=== PATIENT | female | born 1945 | race Caucasian/White ===

== ENCOUNTER 2022-06-29 14:57 | Outpatient (CLI) | payer MEDICARE, SELFPAY ==
--- NOTE | 2022-06-29 | ECG_ITS ---
Measurements Intervals [place] Rate: 77 P: 65 [place]: 182 QRS: 32 QRSD: 94 T: 71 QT: 371 QTc: 421 Interpretive Statements SINUS RHYTHM WITH SINUS ARRHYTHMIA ATRIAL PREMATURE COMPLEX BORDERLINE T WAVE ABNORMALITY- HIGH LATERAL LEADS BASELINE WANDER- V4-V6 BORDERLINE ECG NO PREVIOUS ECG AVAILABLE FOR COMPARISON Electronically Signed On 06-29-2022 16:08:27 CDT by Hao Perdomo D.O.
[2022-06-29 15:33] LABS: Hematocrit 39.3 % (37.0-47.0); Hemoglobin 12.6 g/dL (12.0-15.0)
[2022-06-29 15:46] LABS: Albumin Level 4.5 g/dL (3.5-5.1); Estimated Glomerular Filt Rate > 60; Glucose 106 mg/dL (65-110)
== END 2022-06-29 14:58 | disposition home or self-care (01) ==
PROVIDERS: PCP Family Medicine; Visit Provider Orthopaedic Surgery
DX: E78.5 Hyperlipidemia, unspecified (principal); M17.11 Unilateral primary osteoarthritis, right knee; I10 Essential (primary) hypertension; Z01.818 Encounter for other preprocedural examination; R94.31 Abnormal electrocardiogram [ECG] [EKG]
CPT/HCPCS: 36415; 82040; 82565; 82947; 85014; 85018; 93005

== ENCOUNTER 2022-07-12 10:59 | Outpatient (CLI) | payer MEDICARE, SELFPAY ==
--- NOTE | ~2022-07-12 | CT_ITS ---
EXAMINATION: CT LE RT wo con DATE: 07/12/2022 11:48 INDICATION: Right knee primary osteoarthritis. TECHNIQUE: Computed tomography (CT) of the right lower limb was performed without intravenous contras t. Automated exposure control and iterative reconstruction technique were employed. The dose-length p roduct was 1786.80 mGy-cm. COMPARISON: Right knee radiographs 06/29/2022 FINDINGS: There is severe right hip osteoarthritis. Right knee demonstrates normal bone alignment. Th ere is moderate osteoarthritis of the medial and patellofemoral compartments and severe osteoarthriti s of the lateral compartment. There is a small knee joint effusion. Varicose veins are noted. There i s a small Bucio's cyst. IMPRESSION: 1. Severe right knee osteoarthritis. 2. Small right knee joint effusion. 3. Small Bucio's cyst. 4. Severe right hip osteoarthritis. Reviewed, dictated and finalized at location A.
== END 2022-07-12 11:00 | disposition home or self-care (01) ==
PROVIDERS: PCP Family Medicine; Visit Provider Orthopaedic Surgery
DX: M17.11 Unilateral primary osteoarthritis, right knee (principal); M25.461 Effusion, right knee; M71.21 Synovial cyst of popliteal space [Baker], right knee; M16.11 Unilateral primary osteoarthritis, right hip
CPT/HCPCS: 73700

== ENCOUNTER 2022-09-06 11:13 | Outpatient (CLI) | payer MEDICARE, SELFPAY ==
[2022-09-06 13:34] LABS: Basophils Percent Auto 0.6 % (0.2-1.2); Eosinophils Absolute Auto 0.1 K/mm3 (0-0.3); Eosinophils Percent Auto 1.3 % (0-4.4); Hematocrit 41.4 % (37.0-47.0); Hemoglobin 13.3 g/dL (12.0-15.0); Immature Granulocyte Absolute 0.02 K/mm3 (0.00-0.031); Immature Granulocyte Percent A 0.3 % (0-0.5); Lymphocytes Absolute Auto 1.55 K/mm3 (0.9-3.2); Lymphocytes Percent Auto 21.9 % (18.3-44.2); Mean Corpuscular HGB Conc 32.1 g/dl (32-36); Mean Corpuscular Hemoglobin 31.3 pg (26-34); Mean Corpuscular Volume 97.4 fl (80-100); Mean Platelet Volume 10.5 fl (7.4-10.4); Monocytes Absolute Auto 0.5 K/mm3 (0.1-0.6); Monocytes Percent Auto 7.5 % (2.6-8.5); Neutrophils Absolute Auto 4.8 K/mm3 (1.3-6.7); Neutrophils Percent Auto 68.4 % (45.5-73.1); Platelet Count Result 266 k/mm3 (150-375); Red Blood Count 4.25 M/mm3 (4.2-5.4); Red Cell Distribution Width 12.1 % (11.5-14.5); White Blood Count 7.1 K/mm3 (4.5-10.0)
[2022-09-06 13:40] LABS: Albumin Level 4.5 g/dL (3.5-5.1)
[2022-09-06 13:43] LABS: Anion Gap 11 mmol/L (8-16); Blood Urea Nitrogen 16 mg/dL (7-17); Calcium 10.2 mg/dL (8.4-10.2); Carbon Dioxide 28 mmol/L (22-30); Chloride 99 mmol/L (98-107); Estimated Glomerular Filt Rate > 60; Glucose 96 mg/dL (65-110); Potassium 3.6 mmol/L (3.4-5.0); Sodium 138 mmol/L (137-145)
[2022-09-06 13:54] LABS: Hemoglobin A1C 5.8 % (<5.7)
[2022-09-06 15:06] LABS: Urine Cotinine NEGATIVE
== END 2022-09-06 11:14 | disposition home or self-care (01) ==
LOC: ANHSURGERY 11:19
PROVIDERS: Anesthesiology; PCP Family Medicine; Visit Provider Orthopaedic Surgery
DX: M17.11 Unilateral primary osteoarthritis, right knee (principal); Z01.818 Encounter for other preprocedural examination
CPT/HCPCS: 80048; 80307; 82040; 83036; 85025; 87081

== ENCOUNTER 2022-09-26 00:14 | Day surgery (SDC) | payer MEDICARE, SELFPAY ==
[2022-09-06 11:35] VITALS: PULSE 70; RESP 16; TEMP 36.6; O2SAT 98; BMI 31.1
--- NOTE | 2022-09-06 11:47 | PC.NURSE ---
Report to the Outpatient Waiting Room, entrance under the green pavilion located off [facility], at time __6:00AM on date _09/26/22 . Planned Procedure Time: __7:30AM . Time changes happen often and if your time is changed the preop area will call you the afternoon before. - You and your visitor will be asked to self-screen and do not enter if you have any COVID symptoms. - Only one visitor is requested with a max of two and NO children visitors are allowed at this time. - The patient visitor may be requested to leave or wait in car when not with patient due to distancing restrictions. - A mask is optional within the hospital. Patients may have clear liquids (water, carbonated beverages, clear teas, apple juice) until 3 hours prior to surgery with a maximum of 20 ounces. - No food from midnight until time of surgery Take the following medications with a SIP of water the morning of surgery: ____NONE Medications to discontinue per physician __HOLD ALL VITAMINS/SUPPLEMENTS 3 DAYS PRE-OP- LAST DOSE 09/22/22. HOLD ALL NSAIDS (IBUPROFEN) 7 DAYS PRE-OP- LAST DOSE 09/19/22 Please no make-up, nail djiboutian, hairspray, perfume, deodorant, or body powder the day of surgery. No jewelry (including any body piercings) or valuables the day of surgery, leave them at home. Please take a shower or bath the night before, or the morning of, surgery with an antibacterial soap. Wear comfortable, loose fitting clothing. Children are encouraged to wear pajamas. - Jewelry must be removed prior to entering the operating room. Rings and piercings that are not removed may be cut off. - The hospital will not accept responsibility for valuables. - Please leave all valuables, including medications, at home the day of surgery. If you are going home after surgery, a licensed certified driver examiner must drive you home. - NO public transportation without another adult if you receive anesthesia. - We recommend that an adult stay with you for 24 hours following discharge. - We also recommend that you do not drive, make important decision, drink alcoholic beverages, or take any drugs that were not prescribed by your health care provider for at least 24 hours after your discharge time. Follow any additional instructions given to you from your surgeon. If you or anyone in your household have experienced Covid symptoms in the past week, please notify your surgeon or the nurse liaison at the phone number below for possible testing. Telephone instructions given to __PATIENT and asked if any additional questions and then verbalized understanding. Patient advised to call surgeon office or pre surgery nurse liaison [phone] if any additional questions.
[2022-09-26] VITALS (18 sets, daily range): BP systolic 105–150; BP diastolic 61–94; PULSE 67–93; RESP 12–18; TEMP 36.1–36.8; O2SAT 94–100
--- NOTE | ~2022-09-26 | XR_ITS ---
EXAMINATION: XR knee RT 2V DATE: 09/26/2022 10:10 DESIGNATED BROKER INDICATION: Right total knee arthroplasty TECHNIQUE: 2 views right knee FINDINGS: There is a right total knee arthroplasty in expected position. Subcutaneous gas with fluid and air in the joint are consistent with recent surgery. No evidence of periprosthetic fracture. IMPRESSION: 1. Recent right total knee arthroplasty. Reviewed, dictated and finalized at location A. GNATED BROKER
[2022-09-26] MEDS: LACTATED RINGERS 1,000 ML 30 ML IV CONT ×3 (06:30→11:12)
[2022-09-26] MEDS: ACETAMINOPHEN 500 MG TABLET 1000 MG PO (06:43)
[2022-09-26] MEDS: TRANEXAMIC ACID 1,000MG/ISO100 1,000 MG/100 ML BAG 200 MG IVPB (07:00)
--- NOTE | 2022-09-26 07:09 | WPDHPUPDATE1 ---
History and Physical Update Update Date/Time: 09/26/22 07:09 History and Physical has been reviewed, including an updated exam of the patient. There are NO changes in the patient's condition. Risks, benefits, and alternatives have been discussed and questions answered. Patient agrees to proceed with procedure.
--- NOTE | 2022-09-26 07:14 | WPDANESEPPF ---
Anes - Initial Pre Proc Eval Procedure: Operation Date: 09/26/22 07:30 Proposed Procedures p Right Custom Total Knee Arthroplasty - Conor Carbajal MD Date/Time: 09/26/22 07:14 Surgeon: Conor Carbajal MD Pre Op Diagnosis: O A Rt Knee Patient Data Age: 76 Gender: F Height: 1.83 m Weight: 104.1 kg Last Vital Signs Temp 36.6 C 09/06/22 11:35 Pulse 70 09/06/22 11:35 Resp 16 09/06/22 11:35 Pulse Ox 98 09/06/22 11:35 O2 Del Method Room Air 09/06/22 11:35 Allergies Allergy/AdvReac Type Severity Reaction Status Date / Time No Known Allergies Allergy Unverified 09/06/22 11:30 Home Medications Medication Instructions Recorded Confirmed Type amlodipine 5 mg tablet 5 mg PO DAILY 06/29/22 09/06/22 History cranberry 1,000 mg capsule 1,000 mg PO DAILY 09/06/22 09/06/22 History ibuprofen 200 mg tablet 400 mg PO Q6H PRN Pain 09/06/22 09/06/22 History losartan 100 1 tablet PO QAM 09/06/22 09/06/22 History mg-hydrochlorothiazide 25 mg tablet simvastatin 20 mg tablet 20 mg PO HS 09/06/22 09/06/22 History vitamin A-vitamin C-vit E-min 1 tablet PO DAILY 09/06/22 09/06/22 History tablet Patient hx anesthesia problems: none Family hx anesthesia problems: none Results Review: All pre-operative results and documents have been reviewed as part of the pre-operative evaluation. [facility] Past Medical History Medical History Arthritis Chronic pain syndrome Hyperlipemia Hypertension Surgical History Surgical History Hx of cholecystectomy (~1999) Family History Family History Father Cancer Other Diabetes mellitus Family history of alcoholism Social History Social History Smoking packs per day: 0.2 Smoking cigarettes per day: 4.0 Years smoked: 5 Smoking pack-years: 1.00 Smoking status: Former smoker Tobacco type: cigarettes Smoking end date: 04/21/85 Alcohol intake: current Substance use: never Lack of Transportation: No Lack of Food: Never True Current Housing: I Have Housing Concerned About Future Housing: No Difficulty Paying Gas/Electric Bills: No Difficulty Paying for Meds: No Currently Unemployed: No Education: High School Diploma/GED Difficulty w/ Childcare or Family Care: No Living arrangements: with family Additional living arrangements comments: SPOUSE Spiritual care concerns: No Anes - Eval Final PreProcedure Day of Procedure 09/26/22 07:14 Patient weight: overweight Heart: regular rate and rhythm Lungs: clear to auscultation Airway: Mallampati scale class II Neurological: alert and oriented Last oral intake: >/= 8 hours ASA classification: III Emergent: no Anesthetic plan: proceed Anesthesia type and monitoring: general LMA and standard monitoring Results Review: All pre-operative results and documents have been reviewed as part of the pre-operative evaluation. Informed Consent: The patient's anesthetic plan and its attendant risks and benefits were discussed with the patient/family/POA. Questions were solicited and answers provided to the satisfaction of the patient/family/POA.
[2022-09-26] MEDS: ceFAZolin 2 GM/D5W 50 ML 2 GM/50 ML BAG IVPB ×2 (07:29→16:44)
--- NOTE | 2022-09-26 09:45 | W.PM.PROC2 ---
Procedure Note - Detailed Date of Procedure 09/26/22 Pre-op Diagnosis O A Rt Knee Post-op Diagnosis Same Procedure Performed Total knee arthroplasty, right Surgeon Conor Carbajal MD Anesthesia General and Regional (Subsartorial block.) Findings Good bone quality. No releases required. Description of Procedure Preoperative antibiotics were given. The limb was prepped and draped in the usual sterile fashion with a well-padded tourniquet high on the thigh. The limb was exsanguinated and the tourniquet inflated to 300 mmHg. A longitudinal incision was created just medial to the patella. A trivector approach to the knee was performed. Arthrotomy was taken down through the joint capsule. No significant releases were taken. The femur was exposed and the F1 jig was applied. The coring tool was used to remove the cartilage for the F2 jig to sit flush with the bone. The jig was pinned and the distal cut carefully taken. Caliper measurements confirmed appropriate bony resections according to the preoperative templated plan. The F4 cutting jig for the femur was applied, at the standard rotation. The AP and anterior chamfer cuts were taken. The F5 jig was applied and the posterior chamfer cuts were taken. The tibia was prepared using the T1 jig, after removing cartilage for the jig contact points. Proper alignment was checked with the alignment pat. The tibia was cut using the T1u guide. Gap balancing was performed. Gap measurements were taken and the knee was trialed. Excellent alignment and soft tissue balancing was confirmed. The posterior cruciate ligament was recessed along the proximal tibia. The patella was cut for resurfacing. Three lug holes were drilled. Meniscal remnants were removed. The trial components were assembled. Excellent range of motion and proper soft tissue balancing were confirmed throughout the full range of motion. Patellar tracking was excellent. The knee was copiously irrigated periodically throughout the procedure. The real implants were cemented into position. Excess cement was carefully removed. The wound was closed in layers with interrupted #1 Vicryl suture, 2-0 strata fix suture, 0 strata fix suture, 2-0 strata fix suture. Steri-Strips placed on the skin with the knee flexed. Sterile bulky dressing applied. The patient was brought to the recovery room in stable condition. There were no complications. Implants [employer] Im[employer] PSI total knee arthroplasty. Cemented. PS. 8mm insert. 38 mm oval patella. Estimated Blood Loss 50 Tourniquet Time 79 Drains No Complications No immediate complications Condition Stable Disposition PACU [facility] Billing Surgery - Charge Forward: Surgery Billing
[2022-09-26] MEDS: fentaNYL CITRATE INJ (*CRX) 100 MCG/2 ML VIAL 25 MCG IV PUSH ×8 (09:58→10:29)
--- NOTE | 2022-09-26 10:16 | WPDANESPNB ---
Anes - Peripheral Nerve Block Date/Time: 09/26/22 10:16 I have discussed with the patient/family/POA the placement of a peripheral nerve block for post-operative pain management, including associated risks, benefits, complications, and side effects. Alternative methods of post-operative analgesia were detailed. Questions were solicited and answers provided to the satisfaction of the patient/family/POA. Time-Out: A pre-procedural Time-Out was completed immediately before starting the procedure and confirmed: Patient Identification, Site, Procedure, Patient Position and the Availability of Requisite Equipment. Clinical Indications: Acute post-operative pain management requested by the operative surgeon. Nerve Block Insertion Note Anes-nerve block: adductor canal right Patient position: supine Skin prep: chlorhexidine Needle: 22 gauge, stimulating, insulated echogenic needle. Needle length: 80 mm Technique: ultrasound Technique comment: mid2mg fent 100mcg Injectate: bupivacaine 0.5% with epi 5 mcg/ml (30ml no epi) and dexamethasone (mg) (4) Observations: tolerated well Complications: none Procedure start time:: 714 Procedure end time:: 721
[2022-09-26] MEDS: HYDROmorphone HCL INJ (*CRX) 1 MG/ML SYR 0.5 MG IV PUSH ×2 (10:39→11:20)
--- NOTE | 2022-09-26 11:47 | SUR.PHASEI ---
1145 - pt meets anesthesia criteria. no room available at this time. pt to preop for extended recovery
--- NOTE | 2022-09-26 12:31 | SUR.PHASEI ---
1145 received pt from recovery room,holding pt in pre op area ,awaiting room assignment. pt remains on stretcher. family to side,daughter and spouse.
[2022-09-26] MEDS: ONDANSETRON INJ 4 MG/2 ML VIAL IV PUSH (13:38)
--- NOTE | 2022-09-26 13:40 | SUR.PHASEI ---
1320 standing at side of stretcher with pt and walker,complains nausea and slight dizziness,returned to stretcher.zofran given and eating crackers.
--- NOTE | 2022-09-26 16:28 | ADMGEN ---
This patient, Ivanna Gallegos, was admitted to 2 Medical Room 242-. Patient/family oriented to hospital policies and general routines including ID bracelet, bed and alarms, visiting hours, pain management, procedures, bathroom and other care routines, personal items, smoking policy, room service/diet, and visiting hours. Information on how to activate the Rapid Response Team has been discussed. Patient/Family are encouraged to report perceived risks to care and to ask questions if they do not understand what they are told or what they should do.
[2022-09-26] MEDS: SODIUM CHLORIDE 0.9% IV 1,000 ML 125 ML IV CONT (16:45)
[2022-09-26] MEDS: ASPIRIN 81 MG ENTERIC TABLET PO (16:47)
[2022-09-26] MEDS: MELOXICAM 7.5 MG TABLET PO (16:47)
[2022-09-26] MEDS: SENNA/DOCUSATE SODIUM TABLET 2 TAB PO (16:47)
[2022-09-26] MEDS: oxyCODONE HCL (*CRX) 5 MG TAB IR PO (20:11)
[2022-09-26] MEDS: FAMOTIDINE 20 MG TABLET PO (21:36)
[2022-09-26] MEDS: SIMVASTATIN 20 MG TABLET PO (21:36)
[2022-09-27] MEDS: ceFAZolin 2 GM/D5W 50 ML 2 GM/50 ML BAG IVPB ×2 (00:27→08:05)
[2022-09-27] MEDS: oxyCODONE HCL (*CRX) 5 MG TAB IR PO ×2 (00:35→09:54)
[2022-09-27 04:07] VITALS: BP 136/59; PULSE 74; RESP 20; TEMP 36.2; O2SAT 95
[2022-09-27 06:31] LABS: Basophils Percent Auto 0.2 % (0.2-1.2); Eosinophils Percent Auto 0.1 % (0-4.4); Hematocrit 32.8 % (37.0-47.0); Hemoglobin 10.5 g/dL (12.0-15.0); Immature Granulocyte Absolute 0.03 K/mm3 (0.00-0.031); Immature Granulocyte Percent A 0.4 % (0-0.5); Lymphocytes Absolute Auto 1.05 K/mm3 (0.9-3.2); Lymphocytes Percent Auto 12.6 % (18.3-44.2); Mean Corpuscular Hemoglobin 30.9 pg (26-34); Mean Corpuscular Volume 96.5 fl (80-100); Mean Platelet Volume 10.7 fl (7.4-10.4); Monocytes Absolute Auto 0.9 K/mm3 (0.1-0.6); Monocytes Percent Auto 10.7 % (2.6-8.5); Neutrophils Absolute Auto 6.3 K/mm3 (1.3-6.7); Platelet Count Result 233 k/mm3 (150-375); Red Cell Distribution Width 12.7 % (11.5-14.5); White Blood Count 8.3 K/mm3 (4.5-10.0)
[2022-09-27 07:03] LABS: Anion Gap 4 mmol/L (8-16); Blood Urea Nitrogen 17 mg/dL (7-17); Calcium 8.6 mg/dL (8.4-10.2); Carbon Dioxide 27 mmol/L (22-30); Chloride 105 mmol/L (98-107); Estimated CRCL calculation 64 ml/min; Estimated Glomerular Filt Rate > 60; Glucose 111 mg/dL (65-110); Potassium 3.6 mmol/L (3.4-5.0); Sodium 136 mmol/L (137-145)
[2022-09-27] MEDS: polyethylene glycoL 3350 17 GM POWD.PACK PO (08:04)
[2022-09-27] MEDS: MELOXICAM 7.5 MG TABLET PO (08:05)
[2022-09-27] MEDS: LOSARTAN POTASSIUM 100 MG TABLET PO (08:05)
[2022-09-27] MEDS: SENNA/DOCUSATE SODIUM TABLET 2 TAB PO (08:05)
[2022-09-27] MEDS: predniSONE 5 MG TABLET PO (08:05)
[2022-09-27] MEDS: FAMOTIDINE 20 MG TABLET PO (08:05)
[2022-09-27] MEDS: amLODIPine BESYLATE 5 MG TABLET PO (08:05)
[2022-09-27] MEDS: hydroCHLOROthiazide 25 MG TABLET PO (08:06)
--- NOTE | 2022-09-27 09:22 | PM.DS ---
DS: Admitting Diagnosis Discharge Date 09/27/22 Admitting Diagnosis OA knee Right DS: Discharge Diagnosis Discharge Diagnosis (1) Status post total right knee replacement: Code(s): Z96.651 - Presence of right artificial knee joint Status: Acute Assessment and Plan: Postop day 1: Right total knee arthroplasty. Patient tolerated procedure well. No complications. Pain manageable with pain medication. No numbness or tingling. We had a lengthy discussion regarding postoperative wound care, limitations, expectations, and exercises. Patient shows good understanding. She has had initial physical therapy and is tolerating it well. DVT prophylaxis: 81 mg baby aspirin b.i.d. for 14 days. Pain medication: Percocet. Prednisone. Meloxicam. Patient has followup appointment with Dr. Carbajal in 3 weeks. DS: Summary Hospital Course Reason for hospitalization: Total knee arthroplasty Hospital Course: Patient tolerated procedure well. Has had initial PT/OT. No complications. Pain well managed. Status at Discharge Functional status at discharge: uses cane/walker Overall status at discharge: patient is progressing back to baseline Time Spent with Patient Time attestation: Total time spent providing and/or coordinating discharge services: Exam Narrative: Overweight 76 y/o female. Resting comfortably in chair. No acute distress. A&O x3. Wearing compression socks bilaterally. Dressing intact with no drainage. Moderate swelling. No of ecchymosis. No erythema. No hematoma. Good early range of motion. Calf nontender. Neurologic status intact. No varicosities. Distal pulses palpable. DS: Data Data Completed and Pending Labs on day of discharge: Labs from last 24 hours 09/27/22 09/27/22 05:12 05:12 WBC 8.3 RBC 3.40 L Hgb 10.5 L Hct 32.8 L MCV 96.5 MCH 30.9 MCHC 32.0 RDW 12.7 Plt Count 233 MPV 10.7 H Immature Gran % (Auto) 0.4 Neut % (Auto) 76.0 H Lymph % (Auto) 12.6 L Morris % (Auto) 10.7 H Eos % (Auto) 0.1 Baso % (Auto) 0.2 Lymph # (Auto) 1.05 Morris # (Auto) 0.9 H Eos # (Auto) 0.0 Baso # (Auto) 0.0 Abs Immat Gran (auto) 0.03 Absolute Neuts (auto) 6.3 Absolute Nucleated RBC 0.0 Nucleated RBC % 0.0 Sodium 136 L Potassium 3.6 Chloride 105 Carbon Dioxide 27 Anion Gap 4 L BUN 17 Creatinine 0.90 Estim Creat Clear Calc 64 Estimated GFR > 60 Glucose 111 H Calcium 8.6 Discharge Plan Discharge Patient Disposition: Home, Self-Care Discharge Instructions: See green instruction sheet Stand Alone Forms: General Discharge Instructions Follow-up/Referrals: Melba Gamino PA [Physician Sales And Service Advisor] - Discharge Medications: New meloxicam 15 mg tablet 15 mg PO DAILY Qty: 30 0RF Rx Instructions: Cut in half. Take 1/2 in morning and 1/2 at night. Take with food. Stop if stomach upset. prednisone 5 mg tablet 5 mg PO DAILY 21 Days Qty: 21 0RF aspirin 81 mg tablet,delayed release (DR/EC) 81 mg PO BID 14 Days Qty: 28 0RF oxycodone-acetaminophen 5-325 mg tablet 1 - 2 tablet PO Q4-6H MDD 6 PRN (Reason: pain) Qty: 30 0RF Continued amlodipine 5 mg tablet 5 mg PO DAILY simvastatin 20 mg tablet 20 mg PO HS cranberry 1,000 mg Capsule 1,000 mg PO DAILY Rx Instructions: administer with meals vitamin A-vitamin C-vit E-min Tablet 1 tablet PO DAILY losartan-hydrochlorothiazide 100-25 mg tablet 1 tablet PO QAM ibuprofen 200 mg Tablet 400 mg PO Q6H PRN (Reason: Pain)
[2022-09-27] MEDS: ASPIRIN 81 MG ENTERIC TABLET PO (09:47)
[2022-09-27 10:00] VITALS: BP 102/52; PULSE 79; RESP 18; TEMP 37.1; O2SAT 96
--- NOTE | 2022-09-27 11:57 | WPDANESPN ---
Anes - Prog Note Post-Op Date/Time: 09/27/22 11:57 Cardiovascular status: normal Respiratory status: normal Airway patency: baseline Mental status: baseline Post-Op hydration status: normal Vital Signs: Last Vital Signs Temp 37.1 C 09/27/22 10:00 Pulse 79 09/27/22 10:00 Resp 18 09/27/22 10:00 BP 102/52 L 09/27/22 10:00 Pulse Ox 96 09/27/22 10:00 O2 Del Method Room Air 09/27/22 08:05 O2 Flow Rate 2 09/26/22 11:35 Pain Score (VAS): 12/29 I/O: Intake & Output 09/26/22 09/27/22 09/27/22 23:59 07:59 15:59 Intake Total 890 490 Output Total 200 Balance 890 490 -200 Laboratory Tests 09/27/22 05:12 09/27/22 05:12 09/27/22 09/27/22 05:12 05:12 WBC 8.3 RBC 3.40 L Hgb 10.5 L Hct 32.8 L MCV 96.5 MCH 30.9 MCHC 32.0 RDW 12.7 Plt Count 233 MPV 10.7 H Immature Gran % (Auto) 0.4 Neut % (Auto) 76.0 H Lymph % (Auto) 12.6 L Mathews % (Auto) 10.7 H Eos % (Auto) 0.1 Baso % (Auto) 0.2 Lymph # (Auto) 1.05 Mathews # (Auto) 0.9 H Eos # (Auto) 0.0 Baso # (Auto) 0.0 Abs Immat Gran (auto) 0.03 Absolute Neuts (auto) 6.3 Absolute Nucleated RBC 0.0 Nucleated RBC % 0.0 Sodium 136 L Potassium 3.6 Chloride 105 Carbon Dioxide 27 Anion Gap 4 L BUN 17 Creatinine 0.90 Estim Creat Clear Calc 64 Estimated GFR > 60 Glucose 111 H Calcium 8.6 Post-procedural complaints: none Patient Feedback: Patient satisfied with anesthetic care.
== END 2022-09-27 12:01 | disposition home or self-care (01) ==
LOC: ANHSURGERY 05:46 → ANH2MED 15:55
PROVIDERS: Physician Assistant Surgical; PCP Family Medicine; Visit Provider Orthopaedic Surgery
PROC: (CPT 27447; principal; 2022-09-26 07:30)
DX: M17.11 Unilateral primary osteoarthritis, right knee (principal); G89.18 Other acute postprocedural pain; I10 Essential (primary) hypertension; E78.5 Hyperlipidemia, unspecified; Z87.891 Personal history of nicotine dependence
CPT/HCPCS: 27447; 64447; 36415; 73560; 80048; 85025; 86850; 86900; 86901; 97110; 97116; 97161; 97165; 97530; A9270; C1713; C1776; J0131; J0171; J0690; J1100; J1170; J1885; J2250; J2270; J2405; J2704; J2795; J3010; J7030; J7120; J7512

== ENCOUNTER 2024-07-01 12:00 | Outpatient (CLI) | payer MEDICARE, SELFPAY ==
--- NOTE | ~2024-07-01 | XR_ITS ---
XR hip RT 2V w AP pelvis Ordering provider: Conor Carbajal MD History: . M25.551 - Pain in right hip, NKI, HX ARTHRITIS . Comparison: September 26, 2023 FINDINGS: BONES: No acute fracture or dislocation. HIP JOINT SPACES: Severe osteoarthritic changes of the right hip. SACROILIAC JOINT SPACES/LUMBAR SPINE: The sacroiliac joint spaces shows a right sacroiliitis.. Mild d egenerative changes of the visualized lower lumbar spine. PUBIC SYMPHYSIS: Normal. SOFT TISSUES: Normal. IMPRESSION: No acute osseous abnormality pelvis and right hip. Severe osteoarthritic changes of the right hip. Reviewed, dictated and finalized at location A.
--- NOTE | ~2024-07-01 | XR_ITS ---
XR knee LT 3V Ordering provider: Conor Carbajal MD History: . M25.562 - Pain in left knee NKI HX ARTHRITIS . Comparison: December 29, 2022 FINDINGS: BONES: No acute fracture or dislocation. JOINT SPACES: Severe narrowing of the lateral compartment. Marginal osteophyte. Narrowing of the greene llofemoral joint. SOFT TISSUES: Normal. IMPRESSION: No acute osseous abnormality left knee. Severe osteoarthritic changes. Reviewed, dictated and finalized at location A.
== END 2024-07-01 12:01 | disposition home or self-care (01) ==
LOC: ANHIMG 12:03
PROVIDERS: PCP Physician Assistant; Visit Provider Orthopaedic Surgery
DX: M16.11 Unilateral primary osteoarthritis, right hip (principal); M17.12 Unilateral primary osteoarthritis, left knee
CPT/HCPCS: 73502; 73562

== ENCOUNTER 2024-07-14 13:36 | Outpatient (CLI) | payer MEDICARE, SELFPAY ==
--- NOTE | 2024-07-14 13:54 | ECG_ITS ---
Test Date: 2024-07-14 14:05:06 Measurements Intervals [place] Rate: 75 P: 64 [place]: 213 QRS: 3 QRSD: 93 T: 42 QT: 389 QTc: 434 Interpretive Statements SINUS RHYTHM WITH FIRST DEGREE AV BLOCK CONSIDER ANTERIOR INFARCT, AGE INDETERMINATE CONSIDER INFERIOR INFARCT, AGE INDETERMINATE BORDERLINE ST-T WAVE ABNORMALITY- HIGH LATERAL LEADS BASELINE ARTIFACT- II, III, AVR, AVL, AVF, V3 ABNORMAL ECG No previous ECG available for comparison Electronically Signed On 07-14-2024 14:22:22 CDT by Hao Perdomo D.O.
[2024-07-14 14:08] LABS: Albumin Level 4.4 g/dL (3.5-5.1); Estimated Glomerular Filt Rate > 60
[2024-07-14 14:09] LABS: Hematocrit 40.8 % (37.0-47.0); Hemoglobin 13.3 g/dL (12.0-15.0)
== END 2024-07-14 13:37 | disposition home or self-care (01) ==
LOC: ANHLAB 13:38
PROVIDERS: PCP Physician Assistant; Visit Provider Orthopaedic Surgery
DX: M16.11 Unilateral primary osteoarthritis, right hip (principal); I10 Essential (primary) hypertension; Z01.818 Encounter for other preprocedural examination; I44.0 Atrioventricular block, first degree
CPT/HCPCS: 36415; 82040; 82565; 85014; 85018; 93005

== ENCOUNTER 2024-12-19 11:33 | Outpatient (CLI) | payer MEDICARE, SELFPAY ==
[2024-12-19 13:35] LABS: Basophils Percent Auto 0.4 % (0.2-1.2); Eosinophils Absolute Auto 0.1 K/mm3 (0-0.3); Eosinophils Percent Auto 1.4 % (0-4.4); Hematocrit 40.2 % (37.0-47.0); Hemoglobin 13.1 g/dL (12.0-15.0); Immature Granulocyte Absolute 0.03 K/mm3 (0.00-0.031); Immature Granulocyte Percent A 0.4 % (0-0.5); Lymphocytes Absolute Auto 1.45 K/mm3 (0.9-3.2); Lymphocytes Percent Auto 17.3 % (18.3-44.2); Mean Corpuscular HGB Conc 32.6 g/dl (32-36); Mean Corpuscular Hemoglobin 31.1 pg (26-34); Mean Corpuscular Volume 95.5 fl (80-100); Mean Platelet Volume 10.5 fl (7.4-10.4); Monocytes Absolute Auto 0.6 K/mm3 (0.1-0.6); Monocytes Percent Auto 6.8 % (2.6-8.5); Neutrophils Absolute Auto 6.2 K/mm3 (1.3-6.7); Neutrophils Percent Auto 73.7 % (45.5-73.1); Platelet Count Result 274 k/mm3 (150-375); Red Blood Count 4.21 M/mm3 (4.2-5.4); Red Cell Distribution Width 12.8 % (11.5-14.5); White Blood Count 8.4 K/mm3 (4.5-10.0)
[2024-12-19 13:44] LABS: Albumin Level 4.4 g/dL (3.5-5.1)
[2024-12-19 14:15] LABS: Urine Cotinine NEGATIVE
[2024-12-19 14:48] LABS: MRSA (PCR) NOT DETECTED (NOT DETECTE)
[2024-12-19 14:54] LABS: Anion Gap 13 mmol/L (4-12); Blood Urea Nitrogen 23 mg/dL (7-17); Carbon Dioxide 25 mmol/L (22-30); Chloride 99 mmol/L (98-107); Estimated Glomerular Filt Rate > 60; Glucose 90 mg/dL (65-110); Potassium 4.3 mmol/L (3.4-5.0); Sodium 137 mmol/L (137-145)
[2024-12-19 15:57] LABS: Hemoglobin A1C 5.8 % (<5.7)
== END 2024-12-19 11:34 | disposition home or self-care (01) ==
LOC: ANHSURGERY 11:39
PROVIDERS: Anesthesiology; Visit Provider Orthopaedic Surgery
DX: Z01.818 Encounter for other preprocedural examination (principal); Z51.81 Encounter for therapeutic drug level monitoring; M16.11 Unilateral primary osteoarthritis, right hip
CPT/HCPCS: 36415; 80048; 80307; 82040; 83036; 85025; 87641

== ENCOUNTER 2025-01-13 02:06 | Day surgery (SDC) | payer MEDICARE, SELFPAY ==
[2024-12-19 12:08] VITALS: BP 139/83; PULSE 72; RESP 16; TEMP 36.7; O2SAT 98; BMI 32.6
--- NOTE | 2024-12-19 12:30 | PC.NURSE ---
Report to the Outpatient Waiting Room, entrance under the green pavilion located off [facility], at time ___6:00AM____ on date ___01/13/25____. Planned Procedure Time: ___7:30AM .? Time changes happen often and if your time is changed the preop area will call you the afternoon before. - You and your visitor will be asked to self-screen and do not enter if you have any COVID symptoms. Please call surgeon if you need to reschedule. - A mask is optional within the hospital at this time. Patients may have clear liquids (water, carbonated beverages, clear teas, apple juice) until 3 hours prior to surgery (4:30AM) with a maximum of 20 ounces. - No food from midnight until time of surgery and no smoking, or chewing tobacco (or any form of nicotine). No chewing gum, candy or mints. Take only the following medications with a SIP of water on the morning of surgery: ____AMLODIPINE DO NOT STOP ANY OF YOUR OTHER PRESCRIPTION MEDICATIONS PRIOR TO SURGERY EXCEPT THE FOLLOWING Hold all vitamins and supplements for 3 days per anesthesiologist.- LAST DOSE-01/09/25 Please no make-up, nail grenadian, hairspray, perfume, deodorant, or body powder the day of surgery.? No jewelry (including any body piercings) or valuables the day of surgery, leave them at home.? Please take a shower or bath the night before, or the morning of, surgery with an antibacterial soap.? Wear comfortable, loose fitting clothing.? - Jewelry must be removed prior to entering the operating room.? Rings and piercings that are not removed may be cut off. - The hospital will not accept responsibility for valuables.? - Please leave all valuables, including medications, at home the day of surgery. If you are going home after surgery, a licensed local company intermodal truck driver must drive you home.? - NO public transportation without another adult if you receive anesthesia. - We recommend that an adult stay with you for 24 hours following discharge. - We also recommend that you do not drive, make important decision, drink alcoholic beverages, or take any drugs that were not prescribed by your health care provider for at least 24 hours after your discharge time. Follow any additional instructions given to you from your surgeon. Telephone instructions given to ___PATIENT & HUSBAND and asked if any additional questions and then verbalized understanding. Patient advised to call surgeon office or pre surgery nurse liaison [phone] if any additional questions.
[2025-01-13] VITALS (16 sets, daily range): BP systolic 112–161; BP diastolic 57–89; PULSE 61–83; RESP 12–21; TEMP 36.2–36.7; O2SAT 95–100
--- NOTE | ~2025-01-13 | XR_ITS ---
EXAMINATION: XR hip RT min 2V DATE: 01/13/2025 09:39 INDICATION: Right hip arthroplasty. Postop. TECHNIQUE: 2 views of right hip on 3 radiographs were obtained. COMPARISON: Right hip radiographs 12/19/2024 FINDINGS: There is a total right hip arthroplasty in near-anatomic alignment. No fracture. There is g as in the soft tissues and hip joint, consistent with recent surgery. IMPRESSION: 1. Total right hip arthroplasty in near-anatomic alignment. Reviewed, dictated and finalized at location A.
--- OUTSIDE RECORDS SUMMARY | 2025-01-13 02:12 | XMS_ITS | Encounter Summary ---
Author Organization [facility] Address [address] [place] [address] Phone Care Team Providers Care Radiator Fitter Name Role Phone Manuela Mackey MD Primary Care Provider [phone] Kt Madrigal Primary Care Provider [phone] Reason for Visit * Reason Comments Medication Refill Encounter Details Date Type Department Care Team (Late st Contact Info) Description 01/02/2023 Refill [facility] - Family Medicine [facility] [address] [place] [address] Manuela Mackey MD [address] [place] [address] Medication Refill Social History Tobacco Use Types Packs/Day Years Used Date Smoking Tobacco: Never Smokeless Tobacco: Never Alcohol Use Standard Drinks/Week Comments Yes 0 (1 standard drink = 0.6 oz pur e alcohol) occassionally PHQ-2 Answer Date Recorded Total Score - Questions 1-9 0 /0 04/2022 Comments No Sex and Gender Information Value Date Recorded Sex Assigned at Not on file Legal Sex Female 12:22 AM CDT Gender Identity Not on file Sexual Orientation Not on file documented as of this encounter Miscellaneous Notes * Telephone Encounter - Brea Juárez RN - 01/03/2023 11:51 AM CDT Refill requested too soon. documented in this encounter Plan of Treatment Upcoming Encounters Date Type Department Care Team (Late st Contact Info) Description 02/20/2025 9:20 AM CDT Lab [facility] - [address] [place] [phone] [facility] 02/27/2025 11:15 AM CDT Office Visit [facility] - [address] [address] [place] [address] Kt Madrigal PAC [address] [place] [address] documented as of this encounter Visit Diagnoses Not on filedocumented in this encounter Additional Health Concerns Assessment Noted Time PHQ-9 Depression Total Score: 0 03/15/20 21 10:00 AM CDT documented as of this encounter Care Teams Radiator Fitter Relationship Specialty Start Date End Date Manuela Mackey MD [address] [place] [address] PCP - General Family Medicine 09/08/15 08/29/23 Kt Madrigal PAC [address] [place] [address] PCP - General Physician Education Supervisor 08/30/23 documented as of this encounter
--- OUTSIDE RECORDS SUMMARY | 2025-01-13 02:12 | XMS_ITS | Encounter Summary ---
Author Organization [facility] Address [address] [place] [address] Phone Care Team Providers Care Filling Machine Set Up Mechanic Name Role Phone Kt Madrigal Primary Care Provider [phone] Reason for Visit * Reason Comments Medication Refill Encounter Details Date Type Department Care Team ([facility] st Contact Info) Description 01/11/2025 Refill [facility] [address] [place] [id number] Kt Madrigal, PAC [address] [place] [address] Medication Refill Social History Tobacco Use Types Packs/Day Years Used Date Smoking Tobacco: Never Smokeless Tobacco: Never Alcohol Use Standard Drinks/Week Comments Yes 0 (1 standard drink = 0.6 oz pur e alcohol) occassionally [facility] Utilities Answer Date Recorded In the past 12 months has [email or web address], gas, oil, or water [employer] threatened to shut off services in your home? No 08/29/2024 Social Connection and Isolat ion Panel [NHANES] Answer Date Recorded In a typical week, how many times do you talk on the phone with family, friends, or neighbors? More than three times a week 08/29/2024 How often do you get togethe r with friends or relatives? Twice a week 08/29/2024 How often do you attend [facility] or mandaeism services? Never 08/29/2024 Do you belong to any clubs o r organizations such as scientology groups, unions, fraternal or athletic groups, or school groups? No 08/29/2024 How often do you attend meet ings of the clubs or organizations you belong to? Never 08/29/2024 Are you , , di vorced, , never , or living with a partner? 08/29/2024 AUDIT-C Answer Date Recorded Q1: How often do you have a drink containing alc ohol? 2-4 times a month 08/29/2024 Q2: How many drinks containi ng alcohol do you have on a typical day when you are drinking? 1 or 2 08/29/2024 Q3: How often do you have si x or more drinks on one occasion? Never 08/29/2024 Overall Financial Resource Strain (CARDIA) Answe r Date Recorded How hard is it for you to pa y for the very basics like food, housing, medical care, and heating? Not hard at all 08/29/2024 PHQ-2 Answer Date Recorded Total Score - Questions 1-9 0 06/2024 [facility] - Occupational Stress Questionnaire Answer Date Recorded Do you feel stress - tense, restless, nervous, or anxious, or unable to sleep at night because your mind is troubled all the time - these days? Not at all 08/29/2024 Exercise Vital Sign Answer Date Recorde d On average, how many days pe r week do you engage in moderate to strenuous exercise (like a brisk walk)? 0 days 08/29/2024 On average, how many minutes do you engage in exercise at this level? 0 min 08/29/2024 Hunger Vital Sign Answer Date Recorded Within the past 12 months, y ou worried that your food would run out before you got the money to buy more. Never true 08/29/20 24 Within the past 12 months, t he food you bought just didn't last and you didn't have money to get more. Never true 08/29/2024 PRAPARE - Transportation Answer Date Re corded In the past 12 months, has l ack of transportation kept you from medical appointments or from getting medications? No 05/2024 In the past 12 months, has l ack of transportation kept you from meetings, work, or from getting things needed for daily living? No 08/29/2024 Housing Stability Vital Sign Answer Alonso e Recorded In the last 12 months, was t here a time when you were not able to pay the mortgage or rent on time? No 08/29/2024 Number of Times Moved in the Last Year Not on fi le 08/29/2024 At any time in the past 12 m [facility], were you homeless or living in a [place] [facility] (including now)? No 08/29/2024 Education Answer Date Recorded What is the highest level of school you have completed or the highest degree you have received? 12th grade 05/30/2023 Comments No Sex and Gender Information Value Date Recorded Sex Assigned at Not on file Legal Sex Female 12:22 AM CDT Gender Identity Not on file Sexual Orientation Not on file documented as of this encounter Miscellaneous Notes * Telephone Encounter - Sulema Haas RN - 01/12/2025 9:06 AM CDT Refill requested too soon documented in this encounter Plan of Treatment Upcoming Encounters Date Type Department Care Team (Late st Contact Info) Description 02/20/2025 9:20 AM CDT Lab [facility] - Primary Care - [place] [address] [place] [address] [facility] 02/27/2025 11:15 AM CDT Office Visit [facility] - Primary Care - [place] [address] [place] [address] Kt Madrigal PAC [address] [place] [phone] documented as of this encounter Visit Diagnoses Not on filedocumented in this encounter Additional Health Concerns Assessment Noted Time PHQ-9 Depression Total Score: 0 02/28/20 24 11:00 AM CDT documented as of this encounter Care Teams Filling Machine Set Up Mechanic Relationship Specialty Start Date End Date Kt Madrigal PAC [address] [place] [phone] PCP - General Physician Performance Tester 08/30/23 documented as of this encounter
--- OUTSIDE RECORDS SUMMARY | 2025-01-13 02:12 | XMS_ITS | Clinical Summary ---
Author Organization [facility] Address [address] [address] Phone Care Team Providers Care Concrete Building Assembler Name Role Phone Kt Madrigal Primary Care Provider Allergies Active Allergy Reactions Criticality Noted Date Comments Ciprofloxacin Unknown 12/18/2019 Reaction: GI problems, Lisinopril Unknown 12/18/2019 Reaction: Cough, Sulfa Antibiotics Unknown Trimethoprim Other (see Comments) 12/18/2019 Reaction: gi, Medications Cholecalciferol 2000 UNIT Capsule Active Multiple Vitamins-Mineral s (PRESERVISION/JARED TEIN PO) Take by mouth. Active CRANBERRY PO Take by mouth. Active Celecoxib (CELEBREX PO) Take 200 mg by mouth. Active simvastatin (ZOCOR) 20 MG Tablet TAKE 1 TABLET BY MOUTH DAILY 100 Tablet 2 08/28/2024 Active amLODIPine (NORVASC) 5 MG Tablet TAKE 1 TABLET BY MOUTH DAILY 100 Tablet 2 08/28/2024 Active hydrOXYzine (ATARAX) 25 MG TabletIndication s:Insomnia, unspecified type TAKE 1 TABLET BY MOUTH EVERY 6 HOURS NEEDED FOR SLEEP 20 Tablet 09/24/2024 Active losartan potassium-hydroc hlorothiazide (HYZAAR) 100-25 MG Tablet TAKE 1 TABLET BY MOUTH DAILY 90 Tablet 1 10/01/2024 Active Active Problems Problem Noted Date Diagnosed Date Grade I diastolic dysfunction 08/29/2024 IFG (impaired fasting glucose) 08/29/2024 Essential hypertension 09/15/2015 Hyperlipidemia 09/15/2015 Primary osteoarthritis of left knee 09/15/2015 History of pneumonia 09/15/2015 Resolved Problems Problem Noted Date Diagnosed Date Resolved Date Encounter for screening mamm ogram for malignant neoplasm of breast 05/03/2017 05/03/2017 Edema 09/15/2015 Overview (09/09/2015): LLE IMPROVED Pain in limb 09/15/2015 Encounters Date Type Department Care Team Description 01/11/2025 Refill [facility] [address] [place] [address] Kt Madrigal, PAC Medication Refill from Last 3 Months Immunizations Immunization Administration Dates Next Due Covid-19 Vaccine, Vector-nr, Rs-ad26, Pf, 0.5 Ml ([employer]) 01/28/2021 Influenza Vaccine, Quadrivalent, PF 08/11/2020,0 12/18/2019,08/12/2018 Influenza, High-dose, Quadrivalent 08/23/2021, Influenza, Quadrivalent, Adjuvanted 08/30/2023,1 Influenza, Trivalent, Adjuvanted, PF 08/29/2024 Influenza, high-dose, trivalent, PF 10/31/2016,1 11/15/2014 PUR FLU HIGH DOSE (FLUZONE) 10/31/2016, 5 09/15/2016 PUR PCV-13 09/15/2015 Pneumococcal Vaccine - 13 Valent 09/15/2015 Pneumococcal Vaccine Adult - 23 Valent 8 TD VACCINE 10/22/1998 Td, Adsorbed, Preservative F ree, Adult Use, Lf Unspecified 10/22/1998 Family History Medical History Relation Name Comments Cancer Father Hypertension Mother No Known Problems Sister Relation Name Status Comments Father Mother Alive Sister Alive Social History Tobacco Use Types Packs/Day Years Used Date Smoking Tobacco: Never Smokeless Tobacco: Never Tobacco Cessation:Counseling Given: No Alcohol Use Standard Drinks/Week Comments Yes 0 (1 standard drink = 0.6 oz pur e alcohol) occassionally [facility] Utilities Answer Date Recorded In the past 12 months has e electric, gas, oil, or water company threatened to shut off services in your [...] week 08/29/2024 How often do you attend chur ch or nondenominational services? Never 08/29/2024 Do you belong to any clubs o r organizations such as sabianism groups, unions, fraternal or athletic groups, or [...] Recorded Total Score - Questions 1-9 0 05/0 06/2024 [facility] Questionnaire Answer Date Recorded [...] any time in the past 12 m [facility], were you homeless or living in a snf (including now)? No 08/29/2024 Education Answer Date Recorded What is the highest level of school you have completed or the highest degree you have received? 12th grade 05/30/2023 Comments No Sex and Gender Information Value Date Recorded Sex Assigned at Not on file Legal Sex Female 12:22 AM CDT Gender Identity Not on file Sexual Orientation Not on file Last Filed Vital Signs Vital Sign Reading Time Taken Comments Blood Pressure 118/70 08/29/2024 11:14 AM ABRASIVE GRADER HELPER Pulse 76 08/29/2024 11:14 AM ABRASIVE GRADER HELPER Temperature 35.9 C (96.6 F) 08/29/2024 11:14 AM ABRASIVE GRADER HELPER Respiratory Rate 18 08/29/2024 11:14 AM ABRASIVE GRADER HELPER Oxygen Saturation 94% 08/29/2024 11:14 AM ABRASIVE GRADER HELPER Inhaled Oxygen Concentration - - Weight 107.5 kg (237 lb) 08/29/2024 11:14 AM ABRASIVE GRADER HELPER Height 182.9 cm (6') 07/22/2024 2:17 PM CDT Body Mass Index 32.14 07/22/2024 2:17 PM CDT Plan of Treatment Upcoming Encounters Date Type Department Care Team (Late st Contact Info) Description 02/20/2025 9:20 AM CDT Lab [facility] - Primary Care - [place] [address] [place] [address] [facility] 02/27/2025 11:15 AM CDT Office Visit [facility] - Primary Care - [address] [address] [place] [address] Kt Madrigal PAC [address] [place] [address] Health Maintenance Due Date Last Done Comments Hepatitis C Virus (HCV) Screening 1945 TdaP Immunization 1945 Zoster Immunization (1 of 2) 1996 Respiratory Syncytial Virus (RSV) Immunization (Adult) (1 - 1-dose 75+ series) 2021 SARS-COV-2 Immunization ( - season) 2024 08/15/2022, 10/19/2021, 01/28/2021 DEXA Bone Density 11/01/2025 11/01/2023 Pneumococcal Immunization (50+ years) Completed 08/12/2018, 09/15/2015, 09/15/2015 Pneumococcal Immunization Combined Discontinued 08/12/2018, 09/15/2015, 09/15/2015 Influenza Immunization Completed , 08/30/2023, 08/15/2022, Additional history exists Hepatitis B Immunization Aged Out No longer eligible based on patient's age to complete this topic Meningococcal Immunization (ACWY) Aged Out No longer eligible based on patient's age to complete this topic Rotavirus Immunization Aged Out No lo nger eligible based on patient's age to complete this topic Procedures Procedure Name Priority Date/Time Associated Diagnosis Comments [facility] BONE DENSITOMETRY AXIAL SKELETON Routine 11/01/2023 9:29 AM ABRASIVE GRADER HELPER Asymptomatic menopausal state from Last 3 Months or Most Recently Relevant to Health Maintenance Results * [facility] BONE DENSITOMETRY AXIAL SKELETON (11/01/2023 9:29 AM ABRASIVE GRADER HELPER) Anatomical Region Laterality Modality BODY N/A Computed Radiogr aphy 11/01/2023 9:47 AM ABRASIVE GRADER HELPER Impressions 11/01/2023 9:50 AM ABRASIVE GRADER HELPER IMPRESSION: Normal. REFERENCE: Bone mineral density: Normal (T-score above or = -1.0) Low bone mass (T-score between -1.0 and -2.5) replaces the previously used term osteopenia Osteoporosis (T-score = or below -2.5) Medical evaluation for secondary causes of low bone mineral density may be appropriate. FRAX is a World Health Organization validated fracture risk assessment tool that calculates a person's 10 year probability of a major osteoporosis related fracture and hip fracture. According to the National Osteoporosis Foundation guidelines, postmenopausal women and men age 50 or older with low bone mass and a 10 year probability of a major osteoporosis related fracture = or greater than 20% or a 10 year probability of a hip fracture = or greater than 3% should be considered for treatment. For further information, including treatment recommendations, please refer to the 2013 ISCD Official Positions (http://www.iscd.org) and the NOF's Clinician's Guide to Prevention and Treatment of Osteoporosis (http://www.nof.org/professionals/clinical-guidelines) Narrative 11/01/2023 9:50 AM ABRASIVE GRADER HELPER EXAM DESCRIPTION: [facility] BONE DENSITOMETRY AXIAL SKELETON REASON FOR STUDY: 77 y/o year old F with given history of asymptomatic menopausal state. 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 COMPARISON: None available FINDINGS: AP LUMBAR SPINE L1-L4: Total BMD is 1.287 g/cm2 T-score is 0.7 LEFT HIP: Current Total BMD is 0.957 g/cm2 T-score is -0.4 Current femoral neck BMD is 0.957 g/cm2 T-score is -0.6 FRAX: 10 year risk for a major osteoporotic fracture is 13.7 %, 10 year risk for a hip fracture is 1.6 % THIS IS AN ELECTRONICALLY VERIFIED FINAL REPORT 11/01/2023 9:47 AM - Electronically signed by Sukhdeep Quintanilla M.D. AG: DONNA Report ID: [id number] Reading Location: [place] [address] Procedure Note Sukhdeep Quintanilla MD - 11/01/2023 EXAM DESCRIPTION: [facility] BONE DENSITOMETRY AXIAL SKELETON REASON FOR STUDY: 77 y/o year old F with given history of asymptomatic menopausal state. Spiritual Minister/Model: Top [employer] (S/N [id number]) CLINICAL INFORMATION: Current height: 72 inches Maximum height: 72 inches Weight: 229.2 pounds Risk factors: History of fracture. COMPARISON: None available FINDINGS: AP LUMBAR SPINE L1-L4: Total BMD is 1.287 g/cm2 T-score is 0.7 LEFT HIP: Current Total BMD is 0.957 g/cm2 T-score is -0.4 Current femoral neck BMD is 0.957 g/cm2 T-score is -0.6 FRAX: 10 year risk for a major osteoporotic fracture is 13.7 %, 10 year risk for a hip fracture is 1.6 % THIS IS AN ELECTRONICALLY VERIFIED FINAL REPORT 11/01/2023 9:47 AM - Electronically signed by Sukhdeep Quintanilla M.D. AG: DONNA Report ID: [id number] Reading Location: [place] [address] IMPRESSION: Normal. REFERENCE: Bone mineral density: Normal (T-score above or = -1.0) Low bone mass (T-score between -1.0 and -2.5) replaces the previously used term osteopenia Osteoporosis (T-score = or below -2.5) Medical evaluation for secondary causes of low bone mineral density may be appropriate. FRAX is a World Health Organization validated fracture risk assessment tool that calculates a person's 10 year probability of a major osteoporosis related fracture and hip fracture. According to the National Osteoporosis Foundation guidelines, postmenopausal women and men age 50 or older with low bone mass and a 10 year probability of a major osteoporosis related fracture = or greater than 20% or a 10 year probability of a hip fracture = or greater than 3% should be considered for treatment. For further information, including treatment recommendations, please refer to the 2013 ISCD Official Positions (http://www.iscd.org) and the NOF's Clinician's Guide to Prevention and Treatment of Osteoporosis (http://www.nof.org/professionals/clinical-guidelines) us Kt [facility] DEXA ORDERABLES Final Re sult from Last 3 Months or Most Recently Relevant to Health Maintenance Insurance MEDICARE C [facility] [place] [id number] Care Teams Concrete Building Assembler Relationship Specialty Start Date End Date Kt Madrigal, PAC [address] [place] [address] PCP - General Physician Furnace Installer Helper 08/30/23
--- NOTE | 2025-01-13 06:47 | P.PNAN_ITS ---
Anes - Initial Pre Proc Eval Procedure: Operation Date: 01/13/25 07:30 Proposed Procedures p Right Total Hip Arthroplasty - Conor Carbajal MD Date/Time: 01/13/25 06:47 Surgeon: Conor Carbajal MD Pre Op Diagnosis: primary oa right hip Patient Data Age: 79 Gender: F Height: 1.81 m Weight: 107 kg Last Vital Signs Temp 36.7 C 12/19/24 12:08 Pulse 72 12/19/24 12:08 Resp 16 12/19/24 12:08 BP 139/83 12/19/24 12:08 Pulse Ox 98 12/19/24 12:08 O2 Del Method Room Air 12/19/24 12:08 Allergies Allergy/AdvReac Type Severity Reaction Status Date / Time No Known Allergies Allergy Verified 12/19/24 12:03 Home Medications ?Medication ?Instructions ?Recorded ?Confirmed ?Type amlodipine 5 mg tablet 5 mg PO DAILY 06/29/22 12/19/24 History losartan 100 1 tablet PO QAM 09/06/22 12/19/24 History mg-hydrochlorothiazide 25 mg tablet simvastatin 20 mg tablet 20 mg PO HS 09/06/22 12/19/24 History multivitamin 1 tablet PO DAILY 12/29/22 12/19/24 History multivitamin 1 tablet PO DAILY 12/29/22 12/19/24 History celecoxib 200 mg capsule 200 mg PO DAILY pain #90 caps 11/11/24 12/19/24 Rx vit C 250 mg-vit E 90 mg-zinc 10 1 cap PO DAILY 12/19/24 12/19/24 History mg-copper 1 jo-yzweko-pyfhps capsule ([facility] Vitamin-Mineral) Patient hx anesthesia problems: none Family hx anesthesia problems: none Results Review: All pre-operative results and documents have been reviewed as part of the pre- operative evaluation. [facility] Past Medical History Medical History Chronic pain syndrome Arthritis Hypertension Hyperlipemia Surgical History Surgical History History of total right knee replacement (~09/26/22) Hx of cholecystectomy (~1999) Family History Family History Father Cancer Other Diabetes mellitus Family history of alcoholism Social History Social History Smoking packs per day: 0.2 Smoking cigarettes per day: 4.0 Years smoked: 5 Smoking pack-years: 1.00 Smoking status: Former smoker Tobacco type: cigarettes Smoking end date: 04/21/85 Alcohol intake: current Substance use: never Lack of Transportation: No Lack of Food: Never True Current Housing: I Have Housing Concerned About Future Housing: No Difficulty Paying Gas/Electric Bills: No Difficulty Paying for Meds: No Currently Unemployed: YES Education: High School Diploma/GED Difficulty w/ Childcare or Family Care: No Living arrangements: with family Additional living arrangements comments: [place] Spiritual care concerns: No Anes - Eval Final PreProcedure Day of Procedure 01/13/25 06:47 Patient weight: obese Heart: regular rate and rhythm Lungs: clear to auscultation Airway: Mallampati scale class II Neurological: alert and oriented Last oral intake: >/= 8 hours ASA classification: III Anesthetic plan: proceed Anesthesia type and monitoring: general ETT and standard monitoring Results Review: All pre-operative results and documents have been reviewed as part of the pre- operative evaluation. Informed Consent: The patient's anesthetic plan and its attendant risks and benefits were discussed with the patient/family/POA. Questions were solicited and answers provided to the satisfaction of the patient/family/POA.
[2025-01-13] MEDS: LACTATED RINGERS 1,000 ML 30 ML IV CONT ×2 (07:00→09:42)
[2025-01-13] MEDS: ACETAMINOPHEN 500 MG TABLET 1000 MG PO (07:00)
[2025-01-13] MEDS: TRANEXAMIC ACID 1,000MG/ISO100 1,000 MG/100 ML BAG 200 MG IVPB (07:00)
--- NOTE | 2025-01-13 07:18 | WPDHPUPDATE1 ---
History and Physical Update Update Date/Time: 01/13/25 07:18 History and Physical has been reviewed, including an updated exam of the patient. There are NO changes in the patient's condition. Risks, benefits, and alternatives have been discussed and questions answered. Patient agrees to proceed with procedure.
[2025-01-13] MEDS: ceFAZolin 2 GM/D5W 50 ML 2 GM/50 ML BAG IVPB ×2 (07:25→15:25)
[2025-01-13] MEDS: SODIUM CHLORIDE 0.9% IV 37.7 ML, MORPHINE SULFATE INJ (*CRX) 2 MG, ROPivacaine HCL 1% 2... INFILTRATE (08:06)
[2025-01-13] MEDS: TRANEXAMIC ACID 1,000 MG/10 ML AMPUL 1000 MG IV PUSH (08:56)
--- NOTE | 2025-01-13 09:14 | W.PM.PROC2 ---
Procedure Note - Detailed Date of Procedure 01/13/25 Pre-op Diagnosis Right hip degenerative arthritis. Post-op Diagnosis Same Procedure Performed Right Total Hip Arthroplasty Surgeon Conor Carbajal MD Account Analyst Melba Gamino PA-C Anesthesia General Description of Procedure The patient was given preoperative antibiotics. A general anesthetic was administered. The patient was carefully placed in the lateral decubitus position on the PEG board. The shoulders and hips were carefully positioned for component and leg length positioning reference. The hip was prepped and draped in the usual sterile fashion. A longitudinal incision was created over the posterior aspect of the greater trochanter. Careful dissection was brought down through the deep fascia with electrocautery. A minimally invasive optimized posterior approach to the hip was performed. The short external rotators and capsule were taken down in an L-shaped capsulotomy. The tissue was tagged for later repair using number 2 high strength suture. The femoral neck was measured and taken in situ. The femoral head was removed. The acetabulum was carefully exposed. The inferior capsule was released. The labrum was resected. The acetabulum was sequentially reamed to one over the intended cup size. The cup was impacted into position with excellent press-fit. Typical anatomic landmarks, including the bony contact points as well as the inferior transverse acetabular ligament were used to confirm cup positioning with preoperative templating. Attention was turned to the femur, which was carefully exposed. The hip was reamed and then broached sequentially. Excellent press-fit was obtained with the broach. The hip was trialed. Measurements were utilized, including the lesser trochanter as well as the center of the femoral head and the tip of the trochanter, and excellent assessment of the offset and leg lengths were confirmed. The real component was impacted into position. Trialing confirmed appropriate leg length and offset with soft tissue balancing as well apparent feel of the leg, both at the knee and the heel. Soft tissues were assessed using the the iliotibial band. Reduction of the posterior capsule and external rotators were also used as a secondary assessment. The hip was copiously irrigated with pulsatile lavage periodically throughout the procedure. The real components were then assembled and reduced. The hip was stable throughout typical maneuvers, including extension, external rotation to 70 degrees, the position of sleep as well as flexion to 90 degrees with internal rotation past 35 degrees. The shake test confirmed stability without impingement. Osteophytes were removed as necessary. The short external rotators and capsule were repaired back to the posterior trochanter through drill holes. The deep fascia was repaired with running number 2 barbed suture, followed by 2-0 Stratafix suture and 3-0 Stratafix suture in the dermis. Steri-Strips were placed on the skin, followed by a sterile occlusive dressing. There were no complications. Meticulous hemostasis was maintained with the AquaMantys device. The patient was brought to the recovery room in stable condition. There were no complications. Physician surveyor instrument assistant, Melba Gamino PA-C, required for surgery; including patient positioning, draping, tissue retraction, maintaining instrument position, hip dislocation/ relocation, wound closure, and dressing placement. Implants The [employer] hip stem, high offset size 5 , was utilized with excellent press-fit. The 54 mm Trident II acetabular component was impacted with excellent press-fit stability. 10 degree elevated polyethylene liner the +2.5, 36 mm Biolox ceramic femoral head was utilized. Estimated Blood Loss 350 Drains No Packing No Pathology None sent Complications No immediate complications Condition Stable Disposition PACU [facility] Billing Surgery - Charge Forward: Surgery Billing
[2025-01-13] MEDS: fentaNYL CITRATE INJ (*CRX) 100 MCG/2 ML VIAL 25 MCG IV PUSH ×7 (09:39→10:13)
[2025-01-13] MEDS: HYDROmorphone HCL INJ (*CRX) 1 MG/ML SYR 0.25 MG IV PUSH ×4 (10:20→10:43)
[2025-01-13] MEDS: ACETAMINOPHEN 325 MG TABLET 650 MG PO ×2 (11:39→16:59)
--- NOTE | 2025-01-13 12:43 | ADMGEN ---
This patient, Ivanna Gallegos, was admitted to 3 [facility] Surg Room 301-01. Patient/family oriented to hospital policies and general routines including ID bracelet, bed and alarms, visiting hours, pain management, procedures, bathroom and other care routines, personal items, smoking policy, room service/diet, and visiting hours. Information on how to activate the Rapid Response Team has been discussed. Patient/Family are encouraged to report perceived risks to care and to ask questions if they do not understand what they are told or what they should do. Report from Tiffany.
[2025-01-13] MEDS: SENNA/DOCUSATE SODIUM TABLET 2 TAB PO (16:56)
[2025-01-13] MEDS: oxyCODONE/ACETAMINOPHEN (*CRX) 5-325 MG TABLET 1 TABLET PO ×2 (16:59→20:47)
[2025-01-13] MEDS: SIMVASTATIN 20 MG TABLET PO (20:47)
[2025-01-13] MEDS: FAMOTIDINE 20 MG TABLET PO (20:49)
[2025-01-13] MEDS: ONDANSETRON INJ 4 MG/2 ML VIAL IV PUSH (20:49)
[2025-01-13] MEDS: ASPIRIN 81 MG ENTERIC TABLET PO (20:49)
[2025-01-14] MEDS: ceFAZolin 2 GM/D5W 50 ML 2 GM/50 ML BAG IVPB ×2 (00:02→05:24)
[2025-01-14] MEDS: ACETAMINOPHEN 325 MG TABLET 650 MG PO ×2 (00:02→05:22)
[2025-01-14 03:34] VITALS: BP 141/70; PULSE 84; RESP 18; TEMP 36.6; O2SAT 99
[2025-01-14] MEDS: oxyCODONE/ACETAMINOPHEN (*CRX) 5-325 MG TABLET 1 TABLET PO ×2 (05:22→09:35)
[2025-01-14 05:48] LABS: Basophils Percent Auto 0.4 % (0.2-1.2); Eosinophils Absolute Auto 0.1 K/mm3 (0-0.3); Eosinophils Percent Auto 1.3 % (0-4.4); Hematocrit 35.3 % (37.0-47.0); Hemoglobin 11.3 g/dL (12.0-15.0); Immature Granulocyte Absolute 0.02 K/mm3 (0.00-0.031); Immature Granulocyte Percent A 0.3 % (0-0.5); Lymphocytes Absolute Auto 0.67 K/mm3 (0.9-3.2); Lymphocytes Percent Auto 9.8 % (18.3-44.2); Mean Corpuscular Hemoglobin 31.5 pg (26-34); Mean Corpuscular Volume 98.3 fl (80-100); Mean Platelet Volume 10.5 fl (7.4-10.4); Monocytes Absolute Auto 0.8 K/mm3 (0.1-0.6); Monocytes Percent Auto 12.2 % (2.6-8.5); Neutrophils Absolute Auto 5.2 K/mm3 (1.3-6.7); Platelet Count Result 225 k/mm3 (150-375); Red Blood Count 3.59 M/mm3 (4.2-5.4); Red Cell Distribution Width 13.1 % (11.5-14.5); White Blood Count 6.9 K/mm3 (4.5-10.0)
[2025-01-14 05:59] LABS: Anion Gap 7 mmol/L (4-12); Blood Urea Nitrogen 22 mg/dL (7-17); Calcium 9.3 mg/dL (8.4-10.2); Carbon Dioxide 28 mmol/L (22-30); Chloride 101 mmol/L (98-107); Estimated CRCL calculation 56 ml/min; Estimated Glomerular Filt Rate 56; Glucose 121 mg/dL (65-110); Potassium 4.1 mmol/L (3.4-5.0); Sodium 136 mmol/L (137-145)
[2025-01-14 08:00] VITALS: BP 113/58; PULSE 81; RESP 18; TEMP 36.8; O2SAT 96
[2025-01-14] MEDS: polyethylene glycoL 3350 17 GM POWD.PACK PO (08:30)
[2025-01-14] MEDS: FAMOTIDINE 20 MG TABLET PO (08:32)
[2025-01-14] MEDS: LOSARTAN POTASSIUM 100 MG TABLET PO (08:32)
[2025-01-14] MEDS: ASPIRIN 81 MG ENTERIC TABLET PO (08:32)
[2025-01-14] MEDS: amLODIPine BESYLATE 5 MG TABLET PO (08:33)
[2025-01-14] MEDS: CELECOXIB 200 MG CAPSULE PO (08:33)
[2025-01-14] MEDS: hydroCHLOROthiazide 25 MG TABLET PO (08:33)
[2025-01-14] MEDS: SENNA/DOCUSATE SODIUM TABLET 2 TAB PO (08:33)
[2025-01-14 08:59] VITALS: O2SAT 97
== END 2025-01-14 11:10 | disposition home or self-care (01) ==
LOC: ANHSURGERY 07:22 → ANH3MEDSUR 11:09
PROVIDERS: Physician Assistant Surgical; Visit Provider Orthopaedic Surgery
PROC: (CPT 27130; principal; 2025-01-13 07:30)
DX: M16.11 Unilateral primary osteoarthritis, right hip (principal); Z87.891 Personal history of nicotine dependence; E66.9 Obesity, unspecified; Z68.31 Body mass index [BMI] 31.0-31.9, adult
CPT/HCPCS: 27130; 36415; 73502; 80048; 85025; 86850; 86900; 86901; 97110; 97116; 97161; 97165; 97530; 97535; A9270; C1776; J0171; J0690; J1171; J1596; J1885; J2003; J2250; J2270; J2405; J2704; J2710; J2795; J3010; J7120